=== PATIENT | female | born 1950 | race Caucasian/White ===

== ENCOUNTER → 2017-10-25 | Outpatient (CLI) | payer MEDICARE, BC ==
[~2017-10-25] MED LIST: ACET-2043 PO; ALB18R INH; ATOR40TA24 PO; BACI1POW4 TOP; CA C1TAB85 PO; CEPH-13 PO; CLIN300C99 PO; DOCU-170 PO; DOCU-416 PO; FLUT1AER INH; LISI-351 PO; LISINOPRIL-HCTZ PO; OXYC-865 PO; OXYGENHOME INH; PER PO; PRED20TA6 PO; SIMV-54 PO; SIMVASTATIN PO; SULF-198 PO
--- NOTE | 2017-10-25 14:50 | RADIOLOGY IMAGING REPORT ---
[facility] PATIENT NAME: Margaret Weiss : 1950 MR: [id number] V: [id number] EXAM DATE: ORDERING PHYSICIAN: ALLEN LOCKETT TECHNOLOGIST: Location: [facility] [place] Patient: Margaret Weiss : 1950 Visit/Account:[id number] Date of Sevice: 10/25/2017 CHEST W/O CONTRAST History: Pulmonary nodule TECHNIQUE: Contiguous axial images were performed through the chest to the level of the adrenal gla nds. No IV contrast was administered. Coronal and sagittal reformatting was also performed. COMPARISON STUDIES: CTA chest October 09, 2016 Lungs / Pleura: Previously noted 4 mm noncalcified nodule in the right upper lobe appears less prom inent and now has appearance of a subtle groundglass opacity. This is best seen on image 41 series 3 there are two tiny nodules measuring one and 3 mm anterior aspect of the right lower lobe best seen on image 59 appear to be stable when compared to the prior study there is additional 4 mm subpleural nodule right lower lobe best seen on image 75 which is also stable. There is a 3 mm subpleural nodule lateral aspect left lower lobe best seen on image 84 also unchanged there is no evidence of pleural effusions Mediastinum/nodes: There are small mediastinal lymph nodes present Heart and vessels: There is lipomatous hypertrophy of the intra-atrial septum. There are mild vascu lar calcifications in the thoracic aorta and branch vessels Musculoskeletal / Body wall: negative. Upper abdomen: Multiple cysts in the liver are again noted. Calcified granuloma in the liver. Long ateral lipid rich adrenal adenomas again seen. There is a small area of increased attenuation within the left adrenal adenoma could possibly represent a small area of hemorrhage IMPRESSION: There are multiple bilateral pulmonary nodules ranging in size up to 4 mm. These all appear stable o r less prominent when compared to the prior CT from October 09, 2016 Bilateral lipid rich adrenal adenomas are again seen. There is a small area of increased attenuation within the left adrenal adenoma which could represent a small area of hemorrhage Report Dictated By: Kim Rosado MD at 10/25/2017 1:51 PM Report E-Signed By: Kim Rosado MD at 10/25/2017 2:45 PM WSN:[email or web address]
== END ==
LOC: CT 01:10
PROVIDERS: ATTEND Internal Medicine
DX: R91.1 Solitary pulmonary nodule (principal); R59.0 Localized enlarged lymph nodes; I25.10 Atherosclerotic heart disease of native coronary artery without angina pectoris; I70.0 Atherosclerosis of aorta; K76.89 Other specified diseases of liver
CPT/HCPCS: 71250

== ENCOUNTER → 2017-11-08 | Outpatient (CLI) | payer MEDICARE, BC ==
--- NOTE | 2017-11-09 10:51 | RADIOLOGY IMAGING REPORT ---
FACILITY: [facility] PATIENT NAME: OLIVIER MATTSON : [id number] MR: [id number] V: [id number] EXAM DATE: ORDERING PHYSICIAN: ALLEN LOCKETT TECHNOLOGIST: Henny Astudillo EXAMINATION:TWO-DIMENSIONAL ECHOCARDIOGRAPH REASON:COPD/SOB/EDEMA/HYPOXIA 2D Measurements (normal values in centimeters) LV endLV endRV endVent.LV PostAorticLeftPercent DiastolicSystolicDiastolicSeptumWallRootAtriumShortening (3.5-5.7)(0.9-2.6)(0.6-1.1)(0.6-1.1)(2.0-3.7)(1.9-4.0)(25-35%) [id number]% STROKE VOLUME: 76ml ESTIMATED EJECTION FRACTION:69% PARASTERNAL LONG AXIS: Left ventricular systolic function appears to be normal .Right ventricle is mildly enlarged. Other chamber sizes appear to be normal. Color examination of the valves revealed a trace of mitral insufficiency. Aortic valve was not well seen in this view but does appear to open fairly normally. Color examination of the aortic valve was unremarkable. PARASTERNAL SHORT AXIS: Overall left ventricular systolic function again appears to be normal Right ventricle appears to be mildly enlarged. Aortic valve again is not well seen but probably is trileaflet in configuration. Color examination of the aortic valve was unremarkable. Color examination of the pulmonic valve was also unremarkable. There is a trace of tricuspid insufficiency present. APICAL FOUR AND TWO CHAMBER: Overall left ventricular systolic function again appears to be normal. Right ventricular function appears to be normal with a TAPSE measured at 2.9 but the right ventricle is mildly enlarged. Aortic valve area & mitral valve area both measure within normal ranges at 3.0 & 3.3cm2 respectively. Left atrial & right atrial volumes also measure within normal ranges at 17 & 23ml/m2. The tricuspid regurgitation Vmax measured at 1.49m/sec. No wall motion abnormalities are noted. SUBCOSTAL VIEW: No pericardial effusion was noted. No atrioseptal or ventriculoseptal defects were appreciated. Doppler examination of the mitral valve in diastole does reveal the A wave > E wave. Incidental note is made of several liver cysts. IVC is mildly enlarged at 2.12cm. OVERALL IMPRESSION: 1. Normal left ventricular ejection fraction of 69% with a mild decrease in diastolic function. 2. Mild right ventricular enlargement with the other chamber sizes being normal. 3. A trileaflet aortic valve with a trace of aortic insufficiency. 4. A trace amount of mitral & pulmonic insufficiency present. 5. A trace amount of tricuspid insufficiency was noted. The tricuspid regurgitation Vmax measured at 1.49m/sec but the rate form was not good. The estimated right atrial pressure was somewhere between 9-15mm Hg giving a total right ventricular systolic pressure still within normal ranges between 18-24mm Hg pressure. 6. Incidental note is made of 2 small liver cysts. Dictated by: Dale Hsu M.D. on 11/08/2017 at 20:42 Transcribed by: MARIA L on 11/09/2017 at 10:09 Approved by: Dale Hsu M.D. on 11/09/2017 at 10:50 [facility]
== END ==
LOC: RAD 02:45
PROVIDERS: ATTEND Internal Medicine
DX: I50.30 Unspecified diastolic (congestive) heart failure (principal); I51.7 Cardiomegaly; I35.1 Nonrheumatic aortic (valve) insufficiency; I34.0 Nonrheumatic mitral (valve) insufficiency; I37.1 Nonrheumatic pulmonary valve insufficiency; I07.1 Rheumatic tricuspid insufficiency
CPT/HCPCS: 93306

== ENCOUNTER → 2017-12-11 | Outpatient (REF) | payer MEDICARE, BC ==
[~2017-12-11] MED LIST changes: +UMEC62.5 IH
[2017-12-11 17:31] LABS: PLATELET COUNT, AUTOMATED 242 K/uL (150-450)
== END ==
LOC: ZZSENDIN 17:04
PROVIDERS: ATTEND Family Medicine
DX: Z01.812 Encounter for preprocedural laboratory examination (principal)
CPT/HCPCS: 85025

== ENCOUNTER → 2017-12-14 | Outpatient (CLI) | payer MEDICARE, BC ==
--- NOTE | 2017-12-14 15:19 | RADIOLOGY IMAGING REPORT ---
[place] [facility] [place] Weiss : 1950 MR: [id number] V: [id number] EXAM DATE: ORDERING PHYSICIAN: KAL CANNON TECHNOLOGIST: Location: [facility] - [place], [place] Patient: Margaret Weiss : 1950 Visit/Account:[id number] Date of Sevice: 12/14/2017 Exam type: CHEST PA AND LAT History: Lung nodule, COPD, smoker, preop Comparison: September 23, [address] October 25, 2017. Findings: There is mild hyperinflation of the lung garcia. The previously noted small pulmonary nodules are be tter seen on the recent CT scan. There is no evidence of acute appearing infiltrates, pleural effusi ons or pulmonary edema. The cardiac silhouette is normal in size. IMPRESSION: 1. No acute cardiac primary process is seen Mild hyperinflation lung garcia consistent with the history of COPD Report Dictated By: Kim Rosado MD at 12/14/2017 3:12 PM Report E-Signed By: Kim Rosado MD at 12/14/2017 3:14 PM WSN:[email or web address]
== END ==
LOC: RAD 14:23
PROVIDERS: ATTEND Surgery
DX: J44.9 Chronic obstructive pulmonary disease, unspecified (principal)
CPT/HCPCS: 71046

== ENCOUNTER 2017-12-21 03:35 | Day surgery (SDC) | payer MEDICARE, BC ==
[~2017-12-21] VITALS: Ht 170.2 cm; Wt 122.5 kg
[~2017-12-21 03:35] MED LIST changes: +PRAV10TA46 PO
[2017-12-21] MEDS: NORMOSOL R SOLN(*) 1000 ML BAG 1,000 ML IV PRN ×2 (14:26→18:52)
[2017-12-21 14:37] VITALS: BP 136/70
[2017-12-21] MEDS ORDERED: AMPICILLIN/SULBACT (*) 3 GM VL 3 GM in NS(*) 0.9% 100 ML BAG 100 ML IVPB ONE (14:40)
[2017-12-21] MEDS ORDERED: FAMOTIDINE 20 MG TAB PO ONE (15:10)
[2017-12-21] MEDS ORDERED: MIDAZOLAM 2 MG/2 ML VIAL IVP PRN (15:10)
[2017-12-21] MEDS ORDERED: LIDOCAINE/SOD BICARB 8.4% SYR ID ONE (15:10)
[2017-12-21] MEDS ORDERED: LIDOCAINE MPF 1% 5 ML VIAL ONE (15:59)
[2017-12-21] MEDS ORDERED: PROPOFOL EMUL(*) 10MG/ML 20 ML 20 ML ONE (15:59)
[2017-12-21] MEDS ORDERED: ONDANSETRON 4 MG/2 ML VIAL ONE (15:59)
[2017-12-21] MEDS ORDERED: fentaNYL CITR 100 MCG/2 ML AMP ONE (15:59)
[2017-12-21] MEDS ORDERED: DEXAMETHASONE SOD 4 MG/ML VIAL ONE (15:59)
[2017-12-21] MEDS ORDERED: fentaNYL CITR 250 MCG/5 ML AMP ONE (16:00)
[2017-12-21] MEDS ORDERED: KETAMINE HCL 200 MG/20 ML MDV ONE (16:13)
[2017-12-21] MEDS ORDERED: NEOMYCIN/POLYMYX/BACITR 30 GM TP ONE (17:15)
[2017-12-21] MEDS ORDERED: ROPIVACAINE 0.5% 20 ML VIAL ONE (17:15)
[2017-12-21] MEDS ORDERED: SUGAMMADEX SOD 500 MG/5 ML SDV ONE (17:57)
[2017-12-21] MEDS ORDERED: DOCU-416 PO (18:52)
[2017-12-21] MEDS ORDERED: OXYC-854 PO (18:52)
--- NOTE | 2017-12-21 18:57 | Short(Outpt) Discharge Summary ---
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 Departure Discharge to: Home, Self Care Discharge Instructions Home Meds Active Scripts Docusate Sodium (COLACE) 100 Mg Capsule, 1 CAP PO BID, #30 CAP 0 Refills TAKE WITH A FULL GLASS OF WATER Prov:KAL CANNON MD 12/21/17 Oxycodone Hcl/Acet 5/325 Mg (ENDOCET 5-325 TABLET) 1 Each Tablet, 1-2 TAB PO Q4H Y for PAIN, #30 TAB 0 Refills Prov:KAL CANNON MD 12/21/17 Lisinopril/Hydrochlorothiazide (LISINOPRIL-HCTZ 10-12.5 MG TAB) 1 Each Tablet, 1 EACH PO DAILY, #90 TAB 3 Refills Prov:CODY ZAMORA MD 07/14/14 Reported Medications Pravastatin Sodium (PRAVASTATIN SODIUM) 10 Mg Tablet, 10 MG PO QDAY 12/18/17 Umeclidinium [place] (Incruse Ellipta) 62.5 Mcg Blst.w.dev, 1 PUFF IH QDAY 11/29/17 Oxygen (OXYGEN) Unknown Strength Inha, 3 L INH DIRECTED, L 12/26/16 Discontinued Reported Medications Atorvastatin Calcium (LIPITOR) 40 Mg Tablet, 40 TAB PO QHS, TAB 09/22/15 Follow up Referrals: General Surgery - 12/22/17 @ Surgery, General with Kal Cannon Md You have a follow up appointment scheduled with Dr. Cannon on 12/22/17, at 11:30am. Diet: Regular Activity: As Tolerated Special Instructions: Leave the packing and dressing in place and I'll remove the packing and change the dressing when I see you in my office on 12/22/17, at 11:30am. KAL CANNON MD December 21, 2017 18:57
[2017-12-21] MEDS ORDERED: oxyCODONE/ACETAMIN 5/325MG TH 2 TAB/BOTTLE PO ONE ×2 (19:00)
--- NOTE | 2017-12-21 19:06 | Post Operative Progress Note ---
Post Operative Progress Note Date: December 21, 2017 Time: 19:01 Surgeon: Loida Dictation number: [id number] Anesthesia: LMA by Dr. Freeman Pre-Op Diagnosis: Chronic sinus tract, right buttock Post-Op Diagnosis: KYLAH Findings: C/W dx Procedure(s): Excision of right buttock sinus tract Specimen Removed:(May be N/A): Right buttock sinus tract Complications: None Fluids: See anesthesia record Estimated Blood Loss: Minimal Date OP Note Dictated: December 21, 2017 Time OP Note Dictated: 19:02 KAL CANNON MD December 21, 2017 19:06
[2017-12-21 20:15] VITALS: BP 130/88
[2017-12-21 20:17] VITALS: BP 129/65
--- NOTE | 2017-12-21 20:51 | OPERATIVE REPORT 1 ---
EVENT DATE: December 21, 2017 SURGEON: Teto Mariscal MD ANESTHESIOLOGIST: Mohan Garcia MD ANESTHESIA: LMA. 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 POSTOPERATIVE DIAGNOSIS Chronic draining sinus tract on right buttock. PROCEDURE PERFORMED Excision of sinus tract from right buttock. COMPLICATIONS None. CONDITION Stable. BLOOD LOSS Minimal. INDICATIONS This is a 67-year-old female whom I have cared for for several years. She has hidradenitis in her genital area, and I have excised sinus tracts from that area , but last year, she came to me with a wound on her right buttock that was chronically draining. I went ahead and excised it in the office under local anesthesia, and we let it heal, but it has formed a chronically draining sinus tract. We have given it several months to heal without improvement, and so she has asked that I go ahead and excise this sinus tract. DESCRIPTION OF PROCEDURE The patient was brought to the operating room, placed supine on the operating table. LMA anesthesia was administered, and she was placed in the left lateral decubitus position and secured to the bed in a hsieh bag with appropriate safety belts. Her right buttock was prepped, draped in a sterile fashion. Timeout was completed, and I injected the skin around the sinus tract with 0.5% ropivacaine plain. I made an incision around the sinus tract including some very heaped up and hypertrophic skin around the sinus tract. This turned out to be about a 50 cent piece size of skin that I ended up removing and then dissected through the dermis, then subcutaneous fat, and coned in on the sinus tract. I dissected all the way down deep until I could get to the very end of the sinus tract. It actually tunneled just under the skin a ways away from the actual opening, and I did not find any other opening. It seemed to end blindly. I then removed the entire sinus tract, made the wound hemostatic with pressure, and because I had to open an incision caudad to the circular piece of skin that I removed in order to track the sinus tract inferiorly, I closed this with interrupted 3-0 nylon sutures. I then packed the cavity with moist 4 x 4 gauze and covered it with dry gauze and an ABD pad. This was taped into place, and she was placed in mesh panties. She was then rolled supine, awakened, LMA removed, and she was transported to the recovery room in stable condition having tolerated the procedure without any apparent problems. TINO
== END 2017-12-21 17:48 | disposition home or self-care (01) ==
LOC: OR 03:35
PROVIDERS: ATTEND Surgery
DX: K04.6 Periapical abscess with sinus (principal)
CPT/HCPCS: 11770; 88305; 94640; 94667; A9270; J0295; J1100; J2001; J2405; J2704; J2795; J3010; J3490; J7050

== ENCOUNTER 2018-01-15 02:47 | Outpatient (RCR) | payer MEDICARE, BC ==
[~2018-01-15 02:47] MED LIST changes: +OXYC-854 PO
--- NOTE | 2018-01-15 17:12 | RADIOLOGY IMAGING REPORT ---
FACILITY: PATIENT NAME: OLIVIER MATTSON : [id number] MR: [id number] V: [id number] EXAM DATE: ORDERING PHYSICIAN: KAL COLEMAN TECHNOLOGIST: Cha You PROCEDURE:BILATERAL DIGITAL SCREENING MAMMOGRAM WITH CAD ASSISTED INTERPRETATION & 3D TOMOSYNTHESIS COMPARISON:Prior mammograms 01/12/17, 01/05/16, 11/06/14, 01/28/14. INDICATIONS:screening FINDINGS: Moderately dense fibroglandular tissue is seen throughout the breasts. The parenchymal pattern has remained stable allowing for difference in mammographic technique & patient positioning. There is no evidence of malignant appearing mass, malignant appearing calcifications or other secondary sign of malignancy in either breast. DIAGNOSTIC CATEGORY 1--NEGATIVE. RECOMMENDATIONS: ROUTINE MAMMOGRAM AND CLINICAL EVALUATION. IMPRESSION: BIRADS 1: Negative. No significant abnormality is seen. Dictated by: Kim Rosado M.D. on 01/15/2018 at 15:43 Transcribed by: DOMONIQUE on 01/15/2018 at 15:56 Approved by: Kim Rosado M.D. on 01/15/2018 at 17:12 [facility]
== END 2018-01-15 18:00 | disposition home or self-care (01) ==
LOC: RAD 02:47 → EDSTATUS 14:07 → RAD 18:00
PROVIDERS: ATTEND Family Medicine
DX: Z12.31 Encounter for screening mammogram for malignant neoplasm of breast (principal)
CPT/HCPCS: 77063; 77067